=== PATIENT | female | born 1980 | race African-American/Black ===

== ENCOUNTER 2018-04-08 11:48 | Inpatient (IN) | payer OTHER ==
[2018-04-08 13:15] LABS: ADD MAN DIFF? NO
[2018-04-08] MEDS: LACTATED RINGER'S 1,000 ML IV (13:16)
[2018-04-08 13:18] LABS: WHITE BLOOD COUNT 8.3 10^3/ul (4.8-10.8)
[2018-04-08 13:18] LABS: BASOPHILS % 0.2 % (0.0-2.0); EOSINOPHILS % 0.2 % (0.0-7.0); HEMATOCRIT 32.7 % (37.0-47.0); HEMOGLOBIN 11.6 g/dl (12.0-16.0); LYMPHOCYTES # 2.5 10^3/ul (0.8-2.9); LYMPHOCYTES % 30.1 % (15.0-51.0); MEAN CORPUSCULAR HEMOGLOBIN 32.2 pg (29.0-33.0); MEAN CORPUSCULAR HGB CONC 35.5 g/dl (32.0-37.0); MEAN CORPUSCULAR VOLUME 90.8 fl (82.0-101.0); MEAN PLATELET VOLUME 9.8 fl (7.4-10.4); MONOCYTE # 0.6 10^3/ul (0.3-0.9); MONOCYTES % 7.8 % (0.0-11.0); NEUTROPHIL # 5.1 10^3/ul (1.6-7.5); NEUTROPHILS % 61.2 % (39.0-77.0); PLATELET COUNT 300 10^3/UL (140-415); RED CELL DISTRIBUTION WIDTH 11.6 % (11.5-14.5)
[2018-04-08] MEDS: MAGNESIUM SULFATE 4 GM/100 ML 100 ML IV (13:21)
[2018-04-08 13:38] LABS: PROTIME 12.3 Sec (11.9-14.9)
[2018-04-08 13:51] LABS: ALANINE AMINOTRANSFERASE 14 IU/L (13-69); ALBUMIN 3.9 g/dl (3.3-4.9); ALBUMIN/GLOBULIN RATIO 1.25; ALKALINE PHOSPHATASE 115 IU/L (42-121); ANION GAP 12 (5-13); ASPARTATE AMINO TRANSFERASE 17 IU/L (15-46); BILIRUBIN,INDIRECT 0.2 mg/dl (0-1.1); BILIRUBIN,TOTAL 0.2 mg/dl (0.2-1.3); BLOOD UREA NITROGEN 10 mg/dl (7-20); CALCIUM 10.1 mg/dl (8.4-10.2); CARBON DIOXIDE 20 mmol/L (21-31); CHLORIDE 107 mmol/L (97-110); CREATININE 0.58 mg/dl (0.44-1.00); Estimated GFR > 60 mL/min (>60); GLUCOSE 80 mg/dl (70-220); POTASSIUM 4.3 mmol/L (3.5-5.1); SODIUM 139 mmol/L (135-144); URIC ACID 5.6 mg/dl (3.1-7.9)
[2018-04-08] MEDS: MAGNESIUM SULFATE 20 GM/500 ML 500 ML IV ×2 (13:53→23:46)
[2018-04-08] MEDS: BETAMET NA PHOS/AC(6 MG/ML) 2 ML INJ SYG IM (14:24)
[2018-04-08 14:53] LABS: ADD UMIC YES; UR ASCORBIC ACID 20 mg/dL (NEGATIVE); UR BILIRUBIN (Dip) NEGATIVE (NEGATIVE); UR BLOOD (Dip) NEGATIVE (NEGATIVE); UR CLARITY CLOUDY (CLEAR); UR COLOR YELLOW (YELLOW); UR GLUCOSE (Dip) NEGATIVE (NEGATIVE); UR KETONES (Dip) TRACE mg/dL (NEGATIVE); UR LEUKOCYTE ESTERASE (Dip) NEGATIVE Leu/ul (NEGATIVE); UR NITRITE (Dip) NEGATIVE (NEGATIVE); UR RBC 0 /HPF (0-5); UR SPECIFIC GRAVITY (Dip) 1.015 (1.003-1.030); UR SQUAMOUS EPITHELIAL CELL FEW /HPF (FEW); UR TOTAL PROTEIN (Dip) NEGATIVE (NEGATIVE); UR UROBILINOGEN (Dip) NEGATIVE (NEGATIVE); UR WBC 3 /HPF (0-5)
[2018-04-08 15:04] LABS: CREATININE,URINE RANDOM 77.99 mg/dl (20-320); PROTEIN/CREAT RATIO 0.24 RATIO
[2018-04-08 16:56] LABS: AMPHETAMINE/METHAMPHETAMINE Negative (NEGATIVE); BARBITURATES Negative (NEGATIVE); BENZODIAZEPINES Negative (NEGATIVE); CANNABINOIDS Positive (NEGATIVE); COCAINE Negative (NEGATIVE); OPIATES Negative (NEGATIVE)
[2018-04-08] MEDS: LABETALOL HCL 20MG INJ IV (17:30)
[2018-04-08 18:25] LABS: MAGNESIUM 4.2 mg/dl (1.7-2.5)
[2018-04-09] MEDS: LACTATED RINGER'S 1,000 ML IV ×2 (00:42→14:44)
[2018-04-09 01:18] LABS: MAGNESIUM 5.3 mg/dl (1.7-2.5)
[2018-04-09 06:51] LABS: MAGNESIUM 5.8 mg/dl (1.7-2.5)
[2018-04-09 07:29] LABS: ADD MAN DIFF? NO
[2018-04-09 07:30] LABS: BASOPHILS % 0.1 % (0.0-2.0); HEMATOCRIT 29.6 % (37.0-47.0); HEMOGLOBIN 10.4 g/dl (12.0-16.0); LYMPHOCYTES # 1.6 10^3/ul (0.8-2.9); LYMPHOCYTES % 12.4 % (15.0-51.0); MEAN CORPUSCULAR HEMOGLOBIN 32.4 pg (29.0-33.0); MEAN CORPUSCULAR HGB CONC 35.1 g/dl (32.0-37.0); MEAN CORPUSCULAR VOLUME 92.2 fl (82.0-101.0); MEAN PLATELET VOLUME 10.2 fl (7.4-10.4); MONOCYTE # 0.7 10^3/ul (0.3-0.9); MONOCYTES % 5.6 % (0.0-11.0); NEUTROPHIL # 10.5 10^3/ul (1.6-7.5); NEUTROPHILS % 81.2 % (39.0-77.0); PLATELET COUNT 310 10^3/UL (140-415); RED BLOOD COUNT 3.21 10^6/ul (4.20-5.40); RED CELL DISTRIBUTION WIDTH 11.7 % (11.5-14.5)
[2018-04-09 07:30] LABS: WHITE BLOOD COUNT 12.9 10^3/ul (4.8-10.8)
[2018-04-09 07:57] LABS: ALANINE AMINOTRANSFERASE 15 IU/L (13-69); ALBUMIN 3.4 g/dl (3.3-4.9); ALBUMIN/GLOBULIN RATIO 1.06; ALKALINE PHOSPHATASE 130 IU/L (42-121); ANION GAP 7 (5-13); ASPARTATE AMINO TRANSFERASE 14 IU/L (15-46); BLOOD UREA NITROGEN 6 mg/dl (7-20); CARBON DIOXIDE 18 mmol/L (21-31); CHLORIDE 109 mmol/L (97-110); CREATININE 0.57 mg/dl (0.44-1.00); Estimated GFR > 60 mL/min (>60); GLUCOSE 156 mg/dl (70-220); SODIUM 134 mmol/L (135-144); TOTAL PROTEIN 6.6 g/dl (6.1-8.1)
[2018-04-09] MEDS: NIFEdipine (XL) 30 MG TAB PO (09:11)
[2018-04-09] MEDS: MAGNESIUM SULFATE 20 GM/500 ML 500 ML IV ×2 (09:51→19:51)
[2018-04-09] MEDS: BETAMET NA PHOS/AC(6 MG/ML) 2 ML INJ SYG IM (14:44)
[2018-04-09 14:46] LABS: COLLECTION PERIOD 24 hrs
[2018-04-09 16:27] LABS: COLLECTION PERIOD 24 hrs; SCRET 0.57 mg/dl (0.44-1.00)
[2018-04-09 16:28] LABS: 24HR URINE TOTAL PROTEIN 845.3 mg/24hrs (42.0-225.0); CREATININE CLEARANCE 166.1 mls/min (84.0-162.0); CREATININE,URINE RANDOM 37.09 mg/dl (20-320); VOLUME 3675 ml/24hrs; VOLUME 3675 mls
[2018-04-09] MEDS: PRENATAL VITAMIN PO (17:50)
[2018-04-09 19:10] LABS: MAGNESIUM 6.1 mg/dl (1.7-2.5)
[2018-04-09] MEDS: FERROUS SULFATE (EC) 325 MG TAB PO (21:08)
[2018-04-10] MEDS: LACTATED RINGER'S 1,000 ML IV (04:05)
[2018-04-10] MEDS: MAGNESIUM SULFATE 20 GM/500 ML 500 ML IV (05:45)
[2018-04-10] MEDS: NIFEdipine (XL) 30 MG TAB PO (09:55)
[2018-04-10] MEDS: FERROUS SULFATE (EC) 325 MG TAB PO ×2 (09:55→21:14)
[2018-04-10] MEDS: PRENATAL VITAMIN PO (09:55)
[2018-04-10] MEDS: LABETALOL 200 MG TAB PO (15:30)
[2018-04-11] MEDS: PRENATAL VITAMIN PO (08:51)
[2018-04-11] MEDS: FERROUS SULFATE (EC) 325 MG TAB PO (08:52)
[2018-04-11] MEDS: NIFEdipine (XL) 30 MG TAB PO (08:52)
[2018-04-11] MEDS: LABETALOL 200 MG TAB PO (11:37)
== END 2018-04-11 13:06 | disposition home or self-care (01) | DRG 833 ==
LOC: OBT 11:48 → PP1 04-10 14:25 → L-D 11:50 → OBT 12:43 → L-D 12:20
DX: O13.3 Gestational [pregnancy-induced] hypertension without significant proteinuria, third trimester (principal); Z3A.32 32 weeks gestation of pregnancy; O09.513 Supervision of elderly primigravida, third trimester
CPT/HCPCS: 76815; 76818; 76820; 80053; 80307; 81001; 81003; 82570; 82575; 83735; 84156; 84560; 85025; 85610; 85730

== ENCOUNTER 2018-04-16 11:57 | Inpatient (IN) | payer OTHER ==
[2018-04-16] MEDS: LACTATED RINGER'S 1,000 ML IV ×3 (12:52→22:39)
[2018-04-16 17:14] LABS: ADD MAN DIFF? NO
[2018-04-16 17:20] LABS: BASOPHILS % 0.2 % (0.0-2.0); EOSINOPHILS % 0.4 % (0.0-7.0); HEMATOCRIT 32.1 % (37.0-47.0); HEMOGLOBIN 11.1 g/dl (12.0-16.0); LYMPHOCYTES # 2.5 10^3/ul (0.8-2.9); LYMPHOCYTES % 27.6 % (15.0-51.0); MEAN CORPUSCULAR HEMOGLOBIN 32.5 pg (29.0-33.0); MEAN CORPUSCULAR HGB CONC 34.6 g/dl (32.0-37.0); MEAN CORPUSCULAR VOLUME 93.9 fl (82.0-101.0); MEAN PLATELET VOLUME 10.4 fl (7.4-10.4); MONOCYTES % 11.4 % (0.0-11.0); NEUTROPHIL # 5.3 10^3/ul (1.6-7.5); NEUTROPHILS % 59.8 % (39.0-77.0); PLATELET COUNT 315 10^3/UL (140-415); RED BLOOD COUNT 3.42 10^6/ul (4.20-5.40); RED CELL DISTRIBUTION WIDTH 12.3 % (11.5-14.5)
[2018-04-16 17:20] LABS: WHITE BLOOD COUNT 8.9 10^3/ul (4.8-10.8)
[2018-04-16 17:47] LABS: ALANINE AMINOTRANSFERASE 12 IU/L (13-69); ALBUMIN 3.7 g/dl (3.3-4.9); ALBUMIN/GLOBULIN RATIO 1.02; ALKALINE PHOSPHATASE 97 IU/L (42-121); ANION GAP 13 (5-13); ASPARTATE AMINO TRANSFERASE 16 IU/L (15-46); BILIRUBIN,INDIRECT 0.1 mg/dl (0-1.1); BILIRUBIN,TOTAL 0.1 mg/dl (0.2-1.3); BLOOD UREA NITROGEN 10 mg/dl (7-20); CARBON DIOXIDE 20 mmol/L (21-31); CHLORIDE 106 mmol/L (97-110); CREATININE 0.63 mg/dl (0.44-1.00); Estimated GFR > 60 mL/min (>60); GLUCOSE 69 mg/dl (70-220); SODIUM 139 mmol/L (135-144); TOTAL PROTEIN 7.3 g/dl (6.1-8.1)
[2018-04-16] MEDS: LABETALOL 200 MG TAB PO (21:06)
[2018-04-17] MEDS: LACTATED RINGER'S 1,000 ML IV ×2 (05:34→13:02)
[2018-04-17] MEDS: LABETALOL 200 MG TAB PO (08:52)
[2018-04-17] MEDS: NIFEdipine (XL) 30 MG TAB PO (08:52)
[2018-04-17] MEDS: FERROUS SULFATE (EC) 325 MG TAB PO (08:52)
[2018-04-17] MEDS: PRENATAL VITAMIN PO (08:53)
== END 2018-04-17 15:40 | disposition home or self-care (01) | DRG 833 ==
LOC: OBT 11:57 → L-D 12:00
DX: O13.3 Gestational [pregnancy-induced] hypertension without significant proteinuria, third trimester (principal); O09.513 Supervision of elderly primigravida, third trimester; Z3A.32 32 weeks gestation of pregnancy
CPT/HCPCS: 76818; 80053; 85025

== ENCOUNTER 2018-04-28 18:46 | Inpatient (IN) | payer OTHER ==
[2018-04-28] MEDS: LABETALOL 200 MG TAB PO (22:25)
[2018-04-28] MEDS: FERROUS SULFATE (EC) 325 MG TAB PO (23:21)
[2018-04-29] MEDS ORDERED: NIFEdipine 10 MG CAP PO (09:00)
[2018-04-29] MEDS: LABETALOL 200 MG TAB PO ×2 (10:10→22:57)
[2018-04-29] MEDS: LACTATED RINGER'S 1,000 ML IV ×3 (10:11→18:32)
[2018-04-29] MEDS: FERROUS SULFATE (EC) 325 MG TAB PO ×2 (10:12→22:56)
[2018-04-29] MEDS: PRENATAL VITAMIN PO (10:12)
[2018-04-29] MEDS: NIFEdipine (XL) 30 MG TAB PO (10:14)
[2018-04-29 10:49] LABS: ADD MAN DIFF? NO
[2018-04-29 10:54] LABS: WHITE BLOOD COUNT 6.2 10^3/ul (4.8-10.8)
[2018-04-29 10:54] LABS: BASOPHILS % 0.5 % (0.0-2.0); EOSINOPHILS # 0.1 10^3/ul (0.0-0.5); EOSINOPHILS % 1.3 % (0.0-7.0); HEMATOCRIT 32.9 % (37.0-47.0); HEMOGLOBIN 11.6 g/dl (12.0-16.0); LYMPHOCYTES # 1.8 10^3/ul (0.8-2.9); LYMPHOCYTES % 28.8 % (15.0-51.0); MEAN CORPUSCULAR HEMOGLOBIN 32.5 pg (29.0-33.0); MEAN CORPUSCULAR HGB CONC 35.3 g/dl (32.0-37.0); MEAN CORPUSCULAR VOLUME 92.2 fl (82.0-101.0); MEAN PLATELET VOLUME 9.6 fl (7.4-10.4); MONOCYTE # 0.6 10^3/ul (0.3-0.9); MONOCYTES % 9.2 % (0.0-11.0); NEUTROPHIL # 3.7 10^3/ul (1.6-7.5); NEUTROPHILS % 59.9 % (39.0-77.0); PLATELET COUNT 303 10^3/UL (140-415); RED BLOOD COUNT 3.57 10^6/ul (4.20-5.40)
[2018-04-29] MEDS ORDERED: CARBOPROST 250 MCG INJ IM ×2 (11:00→14:30)
[2018-04-29] MEDS ORDERED: METHYLERGONOVINE 0.2 MG INJ IM ×2 (11:00→14:30)
[2018-04-29] MEDS ORDERED: OXYTOCIN 30 UNITS/LR 500 ML IV ×3 (11:00→14:30)
[2018-04-29] MEDS ORDERED: MISOPROSTOL 200 MCG TAB PR ×2 (11:00→14:30)
[2018-04-29 11:14] LABS: INR 0.93; PROTIME 12.6 Sec (11.9-14.9)
[2018-04-29 11:15] LABS: PARTIAL THROMBOPLASTIN TIME 26.7 Sec (23.0-35.0)
[2018-04-29 11:17] LABS: ALANINE AMINOTRANSFERASE 15 IU/L (13-69); ALBUMIN 3.7 g/dl (3.3-4.9); ALBUMIN/GLOBULIN RATIO 1.02; ALKALINE PHOSPHATASE 120 IU/L (42-121); ANION GAP 11 (5-13); ASPARTATE AMINO TRANSFERASE 17 IU/L (15-46); BILIRUBIN,INDIRECT 0.3 mg/dl (0-1.1); BILIRUBIN,TOTAL 0.3 mg/dl (0.2-1.3); BLOOD UREA NITROGEN 9 mg/dl (7-20); CALCIUM 9.6 mg/dl (8.4-10.2); CARBON DIOXIDE 20 mmol/L (21-31); CHLORIDE 104 mmol/L (97-110); CREATININE 0.73 mg/dl (0.44-1.00); Estimated GFR > 60 mL/min (>60); GLUCOSE 82 mg/dl (70-220); POTASSIUM 3.9 mmol/L (3.5-5.1); SODIUM 135 mmol/L (135-144); TOTAL PROTEIN 7.3 g/dl (6.1-8.1)
[2018-04-29] MEDS: CITRIC ACID/NA CITRATE 30 ML CUP PO (12:16)
[2018-04-29 12:41] LABS: AMPHETAMINE/METHAMPHETAMINE Negative (NEGATIVE); BARBITURATES Negative (NEGATIVE); BENZODIAZEPINES Negative (NEGATIVE); COCAINE Negative (NEGATIVE); OPIATES Negative (NEGATIVE)
[2018-04-29] MEDS ORDERED: KETOROLAC 30 MG INJ (12:49)
[2018-04-29] MEDS ORDERED: morphine SULFATE/PF (10 MG/10 ML) INJ (12:49)
[2018-04-29] MEDS ORDERED: METOCLOPRAMIDE 10 MG INJ (12:49)
[2018-04-29] MEDS ORDERED: ONDANSETRON 4 MG INJ (12:49)
[2018-04-29 12:50] LABS: CANNABINOIDS Positive (NEGATIVE)
[2018-04-29] MEDS ORDERED: PHENYLephrine (100 MCG/ML) 10ML SYG (13:03)
[2018-04-29] MEDS ORDERED: MAGNESIUM SULFATE 20 GM/500 ML 500 ML IV ×2 (13:59→14:16)
[2018-04-29] MEDS ORDERED: ONDANSETRON 4 MG INJ IV ×2 (14:00)
[2018-04-29] MEDS ORDERED: KETOROLAC 30 MG INJ IV (14:00)
[2018-04-29] MEDS ORDERED: DIPHENHYDRAMINE 50 MG INJ IV ×2 (14:00)
[2018-04-29] MEDS ORDERED: CA GLUCONATE (GM) 10% 10ML INJ IV (14:00)
[2018-04-29] MEDS ORDERED: NALOXONE (0.4 MG/ML) INJ IV (14:00)
[2018-04-29] MEDS ORDERED: morphine (1 MG/ML) 10ML SYRINGE IV ×3 (14:00)
[2018-04-29] MEDS ORDERED: MAGNESIUM SULFATE 4 GM/100 ML 100 ML IV ×2 (14:00→14:30)
[2018-04-29] MEDS ORDERED: morphine 2 MG INJ IV ×3 (14:00)
[2018-04-29 14:03] LABS: CBV Base Excess -9.2 mmol/L; CBV COHb 0.2 %; CBV Total Hemglobin 16.5 g/dl; Fraction OxyHgb Cord Venous 3.7 %; MODE ROOM AIR; Sample Type CBV; Site CORD
[2018-04-29 14:04] LABS: AADO2 Cord Arterial 61.4 mmHg; Arterial Cord Blood pCO2 58.9 mmHG (25-50); CBA Base Excess -10.6 mmol/L; CBA COHb 0.1 %; CBA Oxygen Sat 28.8 mmHG; CBA Total Hemglobin 16.4 g/dl; Cord Blood Arterial pO2 17.8 mmHG (15.0-45.0); Fraction OxyHgb Cord Arterial 28.2 %; MODE ROOM AIR; MetHgb Cord Arterial 1.9 %; Sample Type CBA; Site CORD
[2018-04-29] MEDS ORDERED: METHYLERGONOVINE 0.2 MG TAB PO (14:30)
[2018-04-29] MEDS ORDERED: HYDROCODONE/APAP (5/325) TAB PO (14:30)
[2018-04-29] MEDS: OXYTOCIN 30 UNITS/LR 500 ML IV (15:41)
[2018-04-29] MEDS: CEFAZOLIN 2 GM/50 ML (PMX) 50 ML IVPB ×3 (17:10→19:14)
[2018-04-29] MEDS: KETOROLAC 30 MG INJ IV (19:58)
[2018-04-29 22:15] LABS: RAPID PLASMA REAGIN NONREACTIVE (NR)
[2018-04-29] MEDS: SENNA/DOCUSATE NA (8.6MG/50MG) TAB PO (22:56)
[2018-04-30] MEDS: KETOROLAC 30 MG INJ IV ×2 (02:01→08:12)
[2018-04-30] MEDS: LACTATED RINGER'S 1,000 ML IV ×2 (02:01→09:58)
[2018-04-30 08:25] LABS: ADD MAN DIFF? NO
[2018-04-30 08:33] LABS: BASOPHILS % 0.4 % (0.0-2.0); EOSINOPHILS # 0.1 10^3/ul (0.0-0.5); HEMOGLOBIN 9.7 g/dl (12.0-16.0); LYMPHOCYTES # 1.6 10^3/ul (0.8-2.9); LYMPHOCYTES % 19.6 % (15.0-51.0); MEAN CORPUSCULAR HEMOGLOBIN 32.3 pg (29.0-33.0); MEAN CORPUSCULAR HGB CONC 34.6 g/dl (32.0-37.0); MEAN CORPUSCULAR VOLUME 93.3 fl (82.0-101.0); MEAN PLATELET VOLUME 9.8 fl (7.4-10.4); MONOCYTE # 0.6 10^3/ul (0.3-0.9); MONOCYTES % 6.7 % (0.0-11.0); NEUTROPHILS % 71.9 % (39.0-77.0); PLATELET COUNT 266 10^3/UL (140-415); RED CELL DISTRIBUTION WIDTH 12.2 % (11.5-14.5)
[2018-04-30 08:33] LABS: WHITE BLOOD COUNT 8.3 10^3/ul (4.8-10.8)
[2018-04-30 09:00] LABS: ANION GAP 6 (5-13); BLOOD UREA NITROGEN 7 mg/dl (7-20); CALCIUM 8.7 mg/dl (8.4-10.2); CARBON DIOXIDE 23 mmol/L (21-31); CHLORIDE 105 mmol/L (97-110); CREATININE 0.69 mg/dl (0.44-1.00); Estimated GFR > 60 mL/min (>60); GLUCOSE 72 mg/dl (70-220); POTASSIUM 3.7 mmol/L (3.5-5.1); SODIUM 134 mmol/L (135-144)
[2018-04-30] MEDS: SENNA/DOCUSATE NA (8.6MG/50MG) TAB PO ×2 (09:20→21:49)
[2018-04-30] MEDS: FERROUS SULFATE (EC) 325 MG TAB PO ×2 (09:21→21:50)
[2018-04-30] MEDS: PRENATAL VITAMIN PO (09:21)
[2018-04-30] MEDS: NIFEdipine (XL) 30 MG TAB PO (09:21)
[2018-04-30] MEDS: LABETALOL 200 MG TAB PO ×2 (09:21→21:49)
[2018-04-30] MEDS: HYDROCODONE/APAP (5/325) TAB PO ×3 (13:15→21:49)
[2018-05-01] MEDS: IBUPROFEN 800 MG TAB PO ×3 (00:08→18:30)
[2018-05-01] MEDS: HYDROCODONE/APAP (5/325) TAB PO ×4 (05:27→23:29)
[2018-05-01] MEDS: FERROUS SULFATE (EC) 325 MG TAB PO ×2 (08:41→21:42)
[2018-05-01] MEDS: PRENATAL VITAMIN PO (08:41)
[2018-05-01] MEDS: SENNA/DOCUSATE NA (8.6MG/50MG) TAB PO ×2 (08:42→21:00)
[2018-05-01] MEDS: LABETALOL 200 MG TAB PO ×2 (08:42→21:42)
[2018-05-01] MEDS: NIFEdipine (XL) 30 MG TAB PO (08:42)
[2018-05-01] MEDS: LANOLIN HPA 1 PKT TOP (08:43)
[2018-05-01] MEDS: BISACODYL 10 MG SUPP PR (09:54)
[2018-05-01] MEDS: MAGNESIUM HYDROXIDE 30ML CUP PO (09:54)
[2018-05-02 06:41] LABS: ADD MAN DIFF? NO
[2018-05-02 06:47] LABS: WHITE BLOOD COUNT 9.8 10^3/ul (4.8-10.8)
[2018-05-02 06:47] LABS: BASOPHILS % 0.3 % (0.0-2.0); EOSINOPHILS # 0.3 10^3/ul (0.0-0.5); EOSINOPHILS % 2.6 % (0.0-7.0); HEMATOCRIT 29.8 % (37.0-47.0); HEMOGLOBIN 10.4 g/dl (12.0-16.0); LYMPHOCYTES # 2.4 10^3/ul (0.8-2.9); LYMPHOCYTES % 24.9 % (15.0-51.0); MEAN CORPUSCULAR HGB CONC 34.9 g/dl (32.0-37.0); MEAN CORPUSCULAR VOLUME 94.6 fl (82.0-101.0); MONOCYTE # 0.7 10^3/ul (0.3-0.9); NEUTROPHIL # 6.3 10^3/ul (1.6-7.5); NEUTROPHILS % 64.7 % (39.0-77.0); PLATELET COUNT 310 10^3/UL (140-415); RED BLOOD COUNT 3.15 10^6/ul (4.20-5.40); RED CELL DISTRIBUTION WIDTH 12.8 % (11.5-14.5)
[2018-05-02] MEDS: HYDROCODONE/APAP (5/325) TAB PO ×2 (07:17→16:59)
[2018-05-02] MEDS: FERROUS SULFATE (EC) 325 MG TAB PO (08:53)
[2018-05-02] MEDS: PRENATAL VITAMIN PO (08:53)
[2018-05-02] MEDS: NIFEdipine (XL) 30 MG TAB PO (08:54)
[2018-05-02] MEDS: LABETALOL 200 MG TAB PO (08:54)
[2018-05-02] MEDS: DIPHTH/TET/ACEL PERTUSS (ADULT) 0.5 ML VIAL IM* (08:55)
[2018-05-02] MEDS: SENNA/DOCUSATE NA (8.6MG/50MG) TAB PO (08:55)
[2018-05-02] MEDS: MEASLES,MUMPS,RUBELLA VACCINE INJ SC* (08:55)
[2018-05-02] MEDS: IBUPROFEN 800 MG TAB PO (10:23)
== END 2018-05-02 19:04 | disposition home or self-care (01) | DRG 787 ==
LOC: OBT 18:46 → L-D 18:48 → OBT 20:20 → L-D 20:20 → PP1 04-29 16:50
PROC: 10D00Z1 Extraction of Products of Conception, Low, Open Approach (ICD-10-PCS; principal; 2018-05-02)
DX: O76 Abnormality in fetal heart rate and rhythm complicating labor and delivery (principal); O41.03X0 Oligohydramnios, third trimester, not applicable or unspecified; O13.4 Gestational [pregnancy-induced] hypertension without significant proteinuria, complicating childbirth; O99.02 Anemia complicating childbirth; D50.9 Iron deficiency anemia, unspecified; O69.1XX0 Labor and delivery complicated by cord around neck, with compression, not applicable or unspecified; Z3A.35 35 weeks gestation of pregnancy; Z37.0 Single live birth
CPT/HCPCS: 36415; 36600; 76815; 76818; 80048; 80053; 80307; 82803; 84560; 85025; 85384; 85610; 85730; 86592; 86850; 86900; 86901; 87070; 88307; 99464